=== PATIENT | female | born 1995 | race Hispanic/Latino ===

== ENCOUNTER 2022-01-23 19:28 | Emergency (ER) | payer MEDICAID ==
[~2022-01-23] VITALS: Ht 157.5 cm; Wt 90.7 kg
[2022-01-23 19:43] VITALS: BP 121/70
[2022-01-23] MEDS ORDERED: 0.9%NACL 1000ML 1,000 ML IV ONE (20:30)
== END 2022-01-23 20:37 | disposition left against medical advice (07) ==
LOC: EDH 19:28
DX: O26.891 Other specified pregnancy related conditions, first trimester (principal); R55 Syncope and collapse; Z3A.12 12 weeks gestation of pregnancy
CPT/HCPCS: 93005

== ENCOUNTER 2024-01-03 20:48 | Emergency (ER) | payer SELFPAY ==
[~2024-01-03] VITALS: Ht 149.9 cm; Wt 86.2 kg
--- NOTE | 2024-01-03 20:51 | NUR ---
COVID, FLU , STREP SWABS COLLECTED FOR ANY FURTHER ORDERS UA CUP PROVIDED
[2024-01-03] MEDS ORDERED: ketOROlac 15MG/ML VIAL (15MG/ML) IV STA (21:00)
[2024-01-03] MEDS: acetaMINOPHEN 500 MG TABLET PO STA (21:14)
[2024-01-03] MEDS: 0.9%NACL 1000ML 1,000 ML IV STA (21:14)
[2024-01-03 21:21] LABS: RAPID GROUP A STREP negative (NEGATIVE)
--- NOTE | 2024-01-03 21:28 | NUR ---
PT IS ABLE TO SWALLOW TO WITHOUT TROUBLE EVIDENCED BY HER EATING CHIPS AND M&M'S
[2024-01-03 21:31] LABS: INFLUENZA TYPE B Negative For Type B (NEGATIVE)
[2024-01-03 21:35] LABS: SARS-CoV-2, RNA, NAAT NEGATIVE SARS CoV-2 (NEGATIVE)
[2024-01-03 21:39] LABS: INFLUENZA TYPE A Positive For Type A (NEGATIVE)
[2024-01-03] MEDS ORDERED: OSEL75 PO (21:59)
--- NOTE | 2024-01-03 22:00 | ERN ---
ED Note History of Present Illness Stated Complaint: FEVER,COUGH,SORE THROAT, BODY ACHES Chief Complaint: Multiple Complaints Time Seen by MD: 20:52 Time Seen by Midlevel: 21:00 Dictation: 28-year-old female coming in complaining of cough, congestion, body aches and sore throat that started today. Patient states she also was taking a shower when she had a syncopal episode. Allergies: Coded Allergies: No Known Allergies (Unverified Allergy, Unknown, 01/23/22) Home Meds Active Scripts Oseltamivir Phosphate (Tamiflu) 75 Mg Cap, 75 MG PO BID for 5 Days, #10 CAP Prov:SHAHIDA BOWEN MEDICAL TRANSCRIPTION SUPERVISOR 01/03/24 Past Medical History Past Medical History: No Pertinent History Surgical History: None Social History: Negative, Lives with family : 2 Para: 2 Review of System Dictation Constitutional: Positive for fever and chills, no weight loss Eyes: Negative for injury, pain,redness, and discharge ENT: Negative for injury,pain or swelling Cardiovascular: Negative for chest pain, palpitations, and edema Respiratory: Complaining of cough and congestion, no shortness of breath, or wheezing, Abdomen/GI: Negative for abdominal pain, nausea, vomiting, diarrhea, and constipation Back: Negative for injury and pain : Negative for injury, bleeding and discharge MS/Extremity: Negative for injury and deformity Skin: Negative for rash, and discoloration Neuro: Negative for headache, weakness, numbness, tingling, and seizure Psych: Negative for suicide ideation, homicidal ideation, and hallucinations Review of Systems: was completed Initial Vital Sign VS Vital Signs Date Time Temp Pulse Resp B/P (MAP) Pulse Ox O2 Delivery O2 Flow Rate FiO2 01/03/24 20:50 99.3 108 20 121/72 98 Room Air 01/03/24 22:16 0 21 Physical Exam Dictation General: awake, alert, NAD Head/Face: Normocephalic, atraumatic Eyes: PERRL, EOMI, vision at baseline ENT: oral cavity clear, TMs clear, no signs of infection Neck: Trachea midline, supple, no nuchal rigidity Cardiovascular: RRR, normal S1/S2, No MRGs, no JVD Respiratory: CTAB, no respiratory distress, No rales or wheezes Abdomen: Soft, non-tender, non-distended, normal bowel sounds, no guarding or rebound. Skin: Warm, dry, normal turgor, no rash MS/Extremity: Pulses equal, no cyanosis, neurovascular intact, FROM Neuro: COAx4, GCS 15, strength 5/5, CN 2-12 intact, normal cerebellar exam, normal gait, Psych: Normal behavior, mood, and affect normal Results (Laboratory/Radiology) Laboratory/Radiology Laboratory Tests Test 01/03/24 21:02 Influenza Type A Antigen Positive For Type A Influenza Type B Antigen Negative For Type B SARS-CoV-2, RNA, NAAT NEGATIVE SARS CoV-2 Group A Streptococcus Rapid negative (NEGATIVE) Labs Reviewed?: Yes ED Course ED Course Orders Procedure Category Date Status Time Covid Rna Naat LAB 01/03/24 Complete 20:58 Rapid (Group A Strep) LAB 01/03/24 Complete 20:58 Ketorolac PHA 01/03/24 Complete Tromethamine 15mg/Ml 21:00 Acetaminophen 500mg PHA 01/03/24 Complete Tab (Tylenol 500mg T 21:00 0.9%Nacl 1000ml (Ns PHA 01/03/24 Complete 1000ml) 21:00 Influenza Type A & B, LAB 01/03/24 Complete Rapid 21:02 Current Medications Medications (Trade) Dose Ordered Sig/Mila Route PRN Reason Start Time Stop Time Status Last Admin Dose Admin Acetaminophen (TYLenol 500MG TAB) 1,000 mg ONCE STAT PO 01/03/24 21:00 01/03/24 21:02 DC 01/03/24 21:14 Ketorolac Tromethamine (toRADol) 15 mg ONCE STAT IV 01/03/24 21:00 01/03/24 21:02 DC Sodium Chloride 1,000 ml @ 1,000 mls/hr Q1H STAT IV 01/03/24 21:00 01/03/24 21:59 DC 01/03/24 21:14 Vital Signs Date Time Temp Pulse Resp B/P (MAP) Pulse Ox O2 Delivery O2 Flow Rate FiO2 01/03/24 22:16 99.0 88 18 122/65 98 Room Air* 0 21 01/03/24 20:50 99.3 108 20 121/72 98 Room Air Medical Decision Making MDM MDM: 28-year-old female coming in complaining of cough, congestion, body aches and sore throat that started today. Patient states she also was taking a shower when she had a syncopal episode. Physical exam unremarkable. No neurological deficits. Discussed findings with patient, patient was positive for flu A. Educated that if syncopal it is bedside in the shower more than likely related to vasovagal episode. Educated to control fever with Tylenol or Motrin and to complete a dose of Tamiflu. Educated to follow up with PCP in 1-2 days return to the ER symptoms worsen. Differential diagnosis: Vasovagal, influenza, COVID, viral syndrome, strep throat Rationale: Tests considered and ordered secondary to shared decision making include: Previous outside records reviewed: Old ER visits. Risk of complication and/or morbidity or mortality of patient management: None Medications-Per medication reconciliation Need for hospitalization: Patient does not meet criteria for hospitalization. Need for emergency major/minor surgery: No There are no social concerns with this patient. Prescription drug management Prescriptions will include symptomatic care Patient's prior external medical records from other ER visits were reviewed by me as indicated. Prior testing and results from previous visits were reviewed. Prior tests were taken into account with medical decision making and resource utilization, independent historian/historians were used to obtain complete medical history. I independently interpreted the test that were performed, results were reviewed by me and considered findings on radiology if ordered. Medical management and examination interpretation discussions were had by me with other qualified healthcare professionals as indicated for the patient's care. DX & DISP Disposition: Discharge Departure Condition: Stable Scripts Oseltamivir Phosphate (Tamiflu) 75 Mg Cap 75 MG PO BID for 5 Days, #10 CAP Prov: SHAHIDA BOWEN NP 01/03/24 Additional Instructions: Control fever with Tylenol and ibuprofen. Increase fluid intake. Follow up with the PCP in 1-2 days. Referrals: BRENDA CHANG MD (PCP) Time of Disposition: 21:59 I have reviewed the case, and I agree with, Diagnosis and Plan ATTESTATION BY PHYSICIAN I PERFORMED THE SUBSTANTIVE PORTION OF THE VISIT. I HAVE REVIEWED AND PERSONALLY MADE AND APPROVED THE MANAGEMENT PLAN THAT IS DOCUMENTED IN THE NOTE BY MYSELF FOR THE A PP. I ACKNOWLEDGED FOR RESPONSIBILITY FOR THE PATIENT'S MANAGEMENT PLAN. SHAHIDA BOWEN NP Jan 03, 2024 22:00 CANDI WHALEN MD Jan 06, 2024 03:08
[2024-01-03 22:16] VITALS: BP 122/65; PULSE 88; RESP 18; TEMP 98.9; O2SAT 98
== END 2024-01-03 22:17 | disposition home or self-care (01) ==
LOC: EDH 20:48
DX: J10.1 Influenza due to other identified influenza virus with other respiratory manifestations (principal); Z20.822 Contact with and (suspected) exposure to COVID-19; Z79.899 Other long term (current) drug therapy
CPT/HCPCS: 99283; 96360; 87635; 87880; 87804 ×2; J7030

== ENCOUNTER 2024-08-31 21:13 | Emergency (ER) | payer OTHER ==
[~2024-08-31] VITALS: Ht 144.8 cm; Wt 89.0 kg
[~2024-08-31 21:13] MED LIST: OSEL75 PO
[2024-08-31 22:01] LABS: IMMATURE GRANULOCYTE ABSOLUTE 0.03 K/uL (0-1); NUCLEATED RED BLOOD CELLS 0.0 % (0.0-0.19); PLATELET COUNT (AUTO) 242 K/uL (130-400); RED BLOOD CELL COUNT(AUTO) 5.07 MIL/uL (4.00-5.50); RED CELL DISTRIBUTION WIDTH 12.8 % (11.0-15.5); WHITE BLOOD COUNT (AUTO) 9.2 K/uL (4.8-10.8)
--- NOTE | 2024-08-31 22:07 | ERN ---
General Chief Complaint: Stroke Symptoms Stated Complaint: NUMBNESS RT ARM, CP Time Seen by MD: 21:16 History of Present Illness Initial Comments Healthy 29-year-old female who had a sudden onset of right arm numbness and associated anterior chest wall pain with right arm movement. It has been 3 hours since the symptoms started because patient was hoping that they would improve on their own and they did not she comes in to the emergency room as a stroke alert. No visual changes no loss of consciousness no difficulty with s peech no loss of strength able to walk. Past medical history negative Allergies: Coded Allergies: No Known Allergies (Unverified Allergy, Unknown, 01/23/22) Home Meds Active Scripts Oseltamivir Phosphate (Tamiflu) 75 Mg Cap, 75 MG PO BID for 5 Days, #10 CAP Prov:SHAHIDA BOWEN NP 01/03/24 Past Medical History Past Medical History: No Pertinent History Past Surgical History: None Social History Social History: Negative, Lives with family Female( History) : 2 Para: 2 Constitutional: (-) chills, (-) diaphoresis, (-) fever, (-) malaise, (-) weakness, (-) other documentation EENTM: (-) eye pain, (-) blurred vision, (-) tearing, (-) double vision, (-) ear pain, (-) ear discharge, (-) nose pain, (-) nose congestion, (-) throat pain, (-) Throat swelling, (-) mouth pain, (-) tooth pain, (-) mouth swelling, (-) other documentation Respiratory: (-) cough, (-) orthopnea, (-) short of breath, (-) stridor, (-) wheezing, (-) other documentation Cardiovascular: (+) chest pain, (+) other documentation (Anterior chest wall pain that is exacerbated by right arm movement.) Gastrointestinal/Abdominal: (-) nausea, (-) vomiting, (-) diarrhea, (-) abdominal pain, (-) abdominal distention, (-) constipation, (-) rectal bleeding, (-) dark stool/melena, (-) other documentation Genitourinary: (-) vaginal discharge, (-) vaginal bleeding, (-) dysuria, (-) frequency, (-) hematuria, (-) pain, (-) other documentation Musculoskeletal: (-) Neck pain, (-) back pain, (-) Flank Pain, (-) joint pain, (-) joint swelling, (-) muscle pain, (-) muscle stiffness, (-) gout, (-) other documentation Neuro: (-) altered mental status, (-) headache, (-) syncope, (-) paralysis, (-) numbness, (-) seizure, (-) pre-existing deficit, (-) tremors, (-) weakness, (-) dizziness, (-) slurred speech, (-) vertigo, (-) other documentation Physical Exam General Appearance: (+) mild distress Orientation: (+) alert Head/Face Trauma: No Eye: bilateral eye normal inspection, bilateral eye PERRL, bilateral eye EOMI Ear, Nose, Throat: (+) hearing grossly normal, (+) normal ENT inspection, (+) moist mucous membraine Neck: (+) normal inspection, (+) supple, (+) full range of motion, (+) no JVD Respiratory Comment Anterior chest wall pain in the medial portion of her right clavicle. Heart: (+) regular, (+) no gallop Vascular: (+) no edema, (+) normal peripheral pulse, (+) no JVD Gastrointestinal: (+) soft, (+) non-tender, (+) bowel sound present Stroke Patient?: No Is Patient Candidate for t-PA?: No NIH STROKE SCALE: NIH STROKE SCALE Response (Comments) Value Level of Consciousness Alert 0 Ask patient month and their age Answers both correct 0 Command to open eyes, make fist and let go Obeys both correct 0 Best gaze (horizontal eye movement) Normal 0 Visual Field Testing No Visual Field Loss 0 Facial Paresis Normal / Symmetrical 0 Motor Function - Left Arm Normal 0 Motor Function - Right Arm Normal 0 Motor Function - Left Leg Normal 0 Motor Function - Right Leg Some effort against grav. 2 Limb Ataxia No Ataxia 0 Sensory-pin prick to arms, legs, trunk and face Normal 0 Best Language (describe picture, name items and read) No Aphasia 0 Dysarthria (read several words) Normal Articulation 0 Extinction and Inattention Normal 0 Total 2 Results Laboratory and Microbiology Lab and Micro Result Laboratory Tests Test 08/31/24 21:23 White Blood Count 9.2 K/uL (4.8-10.8) Red Blood Count 5.07 MIL/uL (4.00-5.50) Hemoglobin 15.0 g/dL (12.0-16.0) Hematocrit 43.5 % (36-48) Mean Corpuscular Volume 85.8 fL (79-99) Mean Corpuscular Hemoglobin 29.6 pg (27.0-33.0) Mean Corpuscular Hemoglobin Concent 34.5 g/dL (32.0-36.0) Red Cell Distribution Width 12.8 % (11.0-15.5) Platelet Count 242 K/uL (130-400) Mean Platelet Volume 11.4 fL (7.5-10.5) H Immature Granulocyte % (Auto) 0.3 % (0-1) Neutrophils (%) (Auto) 46.5 % (40.0-77.0) Lymphocytes (%) (Auto) 40.5 % (21.0-51.0) Monocytes (%) (Auto) 6.3 % (3.0-13.0) Eosinophils (%) (Auto) 5.6 % (0.0-8.0) Basophils (%) (Auto) 0.8 % (0.0-5.0) Neutrophils # (Auto) 4.3 K/uL (1.8-7.7) Lymphocytes # (Auto) 3.7 K/uL (1.0-4.8) Monocytes # (Auto) 0.6 K/uL (0.1-1.0) Eosinophils # (Auto) 0.51 K/uL (0.00-0.70) Basophils # (Auto) 0.07 K/uL (0.00-0.20) Absolute Immature Granulocyte (auto 0.03 K/uL (0-1) Nucleated Red Blood Cells 0.0 % (0.0-0.19) Prothrombin Time 10.1 SEC (9.6-11.6) Prothromb Time International Ratio 0.95 (0.85-1.15) Sodium Level 139 mmol/L (136-145) Potassium Level 3.4 mmol/L (3.5-5.1) L Chloride Level 104 mmol/L (101-111) Carbon Dioxide Level 29 mmol/L (21-32) Blood Urea Nitrogen 8 mg/dL (7-18) Creatinine 0.5 mg/dL (0.5-1.0) Glomerular Filtration Rate Calc 132 mL/min (>90) Random Glucose 86 mg/dL (70-105) Total Calcium 8.6 mg/dL (8.5-10.1) Troponin I High Sensitivity 22 ng/L (4-50) MDM MDM: Differential diagnosis: CVA, TIA, musculoskeletal pain spinal stenosis Rationale: Tests considered and ordered secondary to shared decision making include: Previous outside records reviewed: Old ER visits. Risk of complication and/or morbidity or mortality of patient management: None Medications-Per medication reconciliation Need for hospitalization: Patient does meet criteria for hospitalization. Need for emergency major/minor surgery: No There are no social concerns with this patient. Prescription drug management Prescriptions will include symptomatic care Patient's prior external medical records from other ER visits were reviewed by me as indicated. Prior testing and results from previous visits were reviewed. Prior tests were taken into account with medical decision making and resource utilization, independent historian/historians were used to obtain complete medical history. I independently interpreted the test that were performed, results were reviewed by me and considered findings on radiology if ordered. Stat head CT scan ordered. As well as cardiac labs and metabolic labs. NIH score is 1 possibly 0. Patient is outside of the therapeutic window. We will give the patient some fluid review her labs repeat her exam. If she continues to have persistent right lower extremity weakness we will get a neurology consult. Patient's CT scan of her head is negative. I discussed the results with the patient. She says she feels stronger now she can raise her right leg and keep it steady without drift for greater than 30 seconds. She has good strength in her right arm and hand. Her chest wall tenderness has also markedly decreased. I discussed the patient's results with her recommended that she talked to a neurologist here over the phone and using our tele neuro capabilities. The patient deferred she states she feels better and she would like to go home and follow-up with her primary care physician. I recommended a 2nd time that patient talked to our neurologist and again the patient deferred stating that she feels better she feels stronger and she would like to go home. We agreed to give her an aspirin daily and she will follow up with her primary care physician. ED Course Orders Procedure Category Date Status Time Cbc With Differential LAB 08/31/24 Complete 21:21 Ct Head/Brain W/O CT 08/31/24 Resulted Contrast 21:33 Prothrombin Time With LAB 08/31/24 Complete INR 21:36 Chest 1vw RAD 08/31/24 Logged 21:36 12 Lead Ekg Tracing- EKG 08/31/24 Logged Technical 21:36 Troponin I High LAB 08/31/24 Complete Sensitivity 21:36 Urinalysis Profile LAB 08/31/24 Logged 21:36 Bedside Glucose CPOE 08/31/24 Transmitted Fingerstick 21:36 Neurological Vs Q4hrs JOHN 08/31/24 Transmitted 21:36 Vital Signs Per CPOE 08/31/24 Transmitted Routine 21:36 Cardiac Monitoring CPOE 08/31/24 Transmitted 21:36 Complete Nih Stroke CPOE 08/31/24 Transmitted Scale 21:36 Basic Metabolic Panel LAB 08/31/24 Complete 21:36 Vital Signs Date Time Temp Pulse Resp B/P (MAP) Pulse Ox O2 Delivery O2 Flow Rate FiO2 08/31/24 21:20 98.4 88 18 148/74 98 Room Air* 0 21 08/31/24 21:15 97.9 82 20 133/83 99 Room Air DX & DISP Disposition: Discharge Departure Impression: Primary Impression: TIA (transient ischemic attack) Condition: Stable Additional Instructions: I strongly recommend you follow-up with her primary care physician and a neurologist as soon as you get home. If you wish you can take an aspirin once a day. I am concerned that you may have had a transient ischemic attack. Please return to the emergency room if you have difficulty walking or talking or if your unable to smile or chew food properly or have any changes in your vision. Referrals: BRENDA CHANG MD (PCP) KISHOR ALBERTO MD Aug 31, 2024 22:07
[2024-08-31 22:09] LABS: CREATININE 0.5 mg/dL (0.5-1.0); GLOMERULAR FILTR. RATE CALC 132.0 mL/min (>90); GLUCOSE,RANDOM 86.0 mg/dL (70-105); SODIUM SERUM 139.0 mmol/L (136-145); UREA NITROGEN, BLOOD 8.0 mg/dL (7-18)
[2024-08-31 22:12] LABS: INR 0.95 (0.85-1.15)
--- NOTE | 2024-08-31 22:20 | HMCIMG ---
EXAM: Non-contrast CT examination of the Brain CLINICAL HISTORY: Stroke TECHNIQUE: Thin collimated axial CT images of the brain were obtained, with sagittal and coronal reformatted images also submitted. A CT scan is done according to ALARA (As Low as Reasonably Achievable). CONTRAST USED: None. COMPARISON: None provided. FINDINGS: No acute intracranial abnormality is present. No acute cortical infarction, hemorrhage, mass, or mass effect. No hydrocephalus or abnormal extra-axial fluid collections. The posterior fossa is unremarkable. The skull base and calvarium are intact. Mildly deviated nasal septum toward the left. The included portions of the paranasal sinuses and mastoid air cells are clear. IMPRESSION: No acute intracranial abnormality is present. If the clinical concern persists, recommend an MRI of the brain, including DWI, for further evaluation. /[place]
[2024-08-31 23:35] VITALS: BP 144/73; PULSE 88; RESP 18; TEMP 98.3; O2SAT 98
--- NOTE | 2024-08-31 23:52 | NUR ---
PT NIH 0, PT IS AMBULATORY, A&OX4, GCS15, RESP EVEN AND UNLABORED ON RA, STATES ALL SYMPTOMS HAVE RESOLVED. PT OFFERED AGAIN TO SPEAK TO A NEUROLOGIST REGARDING SYMPTOMS, PT DECLINED AND STATED SHE WOULD LIKE TO BE D/C AND FOLLOW UP WITH PRIMARY CARE. TIA, MUSCULAR PAIN, AND NEUROLOGICAL EDUCATION PROVIDED TO THE PATIENT AND IN EXTENSIVE DETAIL, BOTH VERBALIZED UNDERSTANDING OF EDUCATION PROVIDED.
--- NOTE | 2024-09-01 07:25 | EKG ---
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
== END 2024-09-01 | disposition home or self-care (01) ==
LOC: EDH 21:13
DX: G45.9 Transient cerebral ischemic attack, unspecified (principal); Z79.899 Other long term (current) drug therapy
CPT/HCPCS: 36415; 70450; 80048; 84484; 85025; 85610; 93005; 99284